=== PATIENT | female | born 1945 | race Caucasian/White ===

== ENCOUNTER 2016-10-31 16:17 | Emergency (ER) | payer MEDICARE ==
[~2016-10-31] VITALS: Ht 149.9 cm; Wt 52.0 kg
[~2016-10-31 16:17] MED LIST: ALBU1AER INH; CALC1TAB53; GABA100C4 PO; HERBAL LIFE; PREM0.622 PO; PROZ20CA11 PO; [UNRECOGNIZED DRUG - OTHER]
[2016-10-31 16:19] VITALS: BP 137/61; PULSE 82; RESP 20; TEMP 98.1; O2SAT 94
[2016-10-31] MEDS ORDERED: GABA800T PO (20:23)
[2016-10-31] MEDS ORDERED: LOSA50TA PO (20:23)
[2016-10-31] MEDS ORDERED: FLUO1TAB17 (20:23)
[2016-10-31] MEDS ORDERED: TRAM50TA PO (20:23)
[2016-10-31] MEDS ORDERED: ADVA115A INH (20:23)
[2016-10-31] MEDS ORDERED: LEVOTAB PO (20:23)
[2016-10-31] MEDS ORDERED: PERC7.5T13 PO (20:23)
[2016-10-31] MEDS ORDERED: ENSULIQ (20:23)
[2016-10-31] MEDS ORDERED: NICO14DI T-DERMAL (20:23)
[2016-10-31] MEDS ORDERED: OXYB10TA PO (20:23)
[2016-10-31] MEDS ORDERED: ZOFR4TAB PO (20:23)
--- NOTE | 2016-10-31 21:06 | RADRPT ---
EXAM DATE/TIME: 10/31/2016 20:47 [place] COMPARISON: CT NEEDLE BIOPSY LUNG, LEFT, May 23, 2015, 8:42. CHEST EXPIRATION ONLY, May 23, 2015, 11:01. INDICATIONS : Fever. MEDICAL HISTORY : Carcinoma, lung. SURGICAL HISTORY : None. ENCOUNTER: Initial ACUITY: 1 day PAIN SCORE: 0/10 LOCATION: Bilateral chest FINDINGS: There is a mass-like density within the right upper lung field which is increased in overall size com pared to the previous chest x-ray in May of 2015. A right basilar granuloma is also noted. The left lung is clear. The heart is normal. CONCLUSION: Mass-like density within the right upper lung field which has increased in overall size compared to t he previous examination in May of 2015. Ed Lyles MD on October 31, 2016 at 20:59 Board Certified Radiologist. This report was verified electronically.
--- NOTE | 2016-10-31 21:07 | PD ---
HPI Chief Complaint: Fever Time Seen by Provider: 20:18 Travel History International Travel<30 days: No Contact w/Intl Traveler<30days: No Traveled to known affect area: No History of Present Illness HPI 71yo F with PMH of lung CA was sent here by her PMD Dr. Leggett for cxr and blood work as per patient. Pt has been having nasal congestion, ear pain, and mild cough. Chest discomfort with cough. Pt has visiting nurse and found to have temperature of 100F today. Pt was discharged from [facility] 1 month ago for blood infection and pneumonia. PFSH Past Medical History Cancer: No Cardiovascular Problems: Yes (HTN) Chemotherapy: Yes (A YEAR AGO) Cerebrovascular Accident: Yes Diabetes: No Endocrine: No Gastrointestinal Disorders: No Genitourinary: No Hepatitis: No Hiatal Hernia: No Hypertension: No Immune Disorder: No Medical other: No Musculoskeletal: Yes (OSTEOPOROSIS) Neurologic: Yes (LEG NEUROPATHY, "DOUBLE ANEURYSM LEFT SIDE OF BRAIN") Psychiatric: Yes (DEPRESSION) Reproductive: No Respiratory: Yes (COPD/LUNG CANCER) Thyroid Disease: No Influenza Vaccination: No ?: Not Past Surgical History Abdominal Surgery: Yes (APPENDECTOMY) AICD: No Endocrine Surgery: Yes (TONSILLECTOMY) Gynecologic Surgery: Yes (HYSTERECTOMY) Hysterectomy: Yes Joint Replacement: No Pacemaker: No Other Surgery: Yes Social History Alcohol Use: No Tobacco Use: Yes Substance Use: No Allergies-Medications (Allergen,Severity, Reaction): Coded Allergies: No Known Allergies (Unverified , 10/31/16) Reported Meds & Prescriptions Reported Meds & Active Scripts Active Bactrim DS (Sulfamethoxazole-Trimethoprim) 800-160 Mg Tab 1 Tab PO BID Reported Ensure (Nutritional Supplements) 1 Liq Liq Zofran (Ondansetron HCl) 4 Mg Tab 4 Mg PO Q4HR PRN Tramadol (Tramadol HCl) 50 Mg Tab 50 Mg PO Q4H PRN Percocet (Oxycodone-Acetaminophen) 7.5-325 mg Tab 1 Tab PO Q8HR PRN Levocetirizine 5 Mg Tab 5 Mg PO DAILY Gabapentin 800 Mg Tab 800 Mg PO TID Advair Hfa 12 GM Inh (Fluticasone-Salmeterol 12 GM Inh) 115-21 Mcg/Act Aer 2 Puff INH BID Losartan (Losartan Potassium) 50 Mg Tab 50 Mg PO DAILY Nicotine Patch (Nicotine) 14 Mg/24 Hr Patch 14 Mg T-DERMAL DAILY Oxybutynin ER 24 HR (Oxybutynin Chloride) 10 Mg Tab 10 Mg PO DAILY Fluoxetine HCl (Fluoxetine HCl (Pmdd)) 20 Mg Tab 20 Review of Systems Except as stated in HPI: all other systems reviewed are Neg Physical Exam Narrative GENERAL: 71yo F not in distress. SKIN: Focused skin assessment warm/dry. HEAD: Atraumatic. Normocephalic. EYES: Pupils equal and round. No scleral icterus. No injection or drainage. ENT: No nasal bleeding or discharge. Mucous membranes pink and moist. NECK: Trachea midline. No JVD. CARDIOVASCULAR: Regular rate and rhythm. No murmur appreciated. RESPIRATORY: No accessory muscle use. Clear to auscultation. Breath sounds equal bilaterally. GASTROINTESTINAL: Abdomen soft, non-tender, nondistended. No rebound tenderness or guarding. MUSCULOSKELETAL: No obvious deformities. No clubbing. No cyanosis. No edema. NEUROLOGICAL: Awake and alert. No obvious cranial nerve deficits. Motor grossly within normal limits. Normal speech. PSYCHIATRIC: Appropriate mood and affect; insight and judgment normal. Data Data Last Documented VS Vital Signs Date Time Temp Pulse Resp B/P Pulse Ox O2 Delivery O2 Flow Rate FiO2 10/31/16 16:19 98.1 82 20 137/61 94 Room Air Orders Complete Blood Count With Diff (10/31/16 20:30) Basic Metabolic Panel (Bmp) (10/31/16 20:30) Ckmb (Isoenzyme) Profile (10/31/16 20:30) Troponin I (10/31/16 20:30) Prothrombin Time / Inr (Pt) (10/31/16 20:30) Act Partial Throm Time (Ptt) (10/31/16 20:30) Chest, Single Ap (10/31/16 ) Lactic Acid Sepsis Protocol (10/31/16 20:30) Urinalysis - C+S If Indicated (10/31/16 20:30) Influenzae A/B Antigen (10/31/16 20:30) Electrocardiogram (10/31/16 ) Urine Culture (10/31/16 20:50) Ceftriaxone Inj (Rocephin Inj) (10/31/16 21:30) CKMB (10/31/16 20:50) CKMB% (10/31/16 20:50) Labs Laboratory Tests Test 10/31/16 20:50 White Blood Count 5.8 TH/MM3 Red Blood Count 3.90 MIL/MM3 Hemoglobin 11.3 GM/DL Hematocrit 33.3 % Mean Corpuscular Volume 85.4 FL Mean Corpuscular Hemoglobin 29.0 PG Mean Corpuscular Hemoglobin 34.0 % Concent Red Cell Distribution Width 13.7 % Platelet Count 268 TH/MM3 Mean Platelet Volume 6.8 FL Neutrophils (%) (Auto) 59.5 % Lymphocytes (%) (Auto) 25.0 % Monocytes (%) (Auto) 6.7 % Eosinophils (%) (Auto) 8.1 % Basophils (%) (Auto) 0.7 % Neutrophils # (Auto) 3.5 TH/MM3 Lymphocytes # (Auto) 1.5 TH/MM3 Monocytes # (Auto) 0.4 TH/MM3 Eosinophils # (Auto) 0.5 TH/MM3 Basophils # (Auto) 0.0 TH/MM3 CBC Comment DIFF FINAL Differential Comment Prothrombin Time 10.7 SEC Prothromb Time International 1.0 RATIO Ratio Activated Partial 29.0 SEC Thromboplast Time Urine Color YELLOW Urine Turbidity HAZY Urine pH 6.0 Urine Specific [place] 1.014 Urine Protein TRACE mg/dL Urine Glucose (UA) NEG mg/dL Urine Ketones NEG mg/dL Urine Occult Blood SMALL Urine Nitrite NEG Urine Bilirubin NEG Urine Urobilinogen LESS THAN 2.0 MG/DL Urine Leukocyte Esterase LARGE Urine RBC 11 /hpf Urine WBC 20 /hpf Urine Squamous Epithelial 2 /hpf Cells Urine Transitional Epithelial 2 /hpf Cells Urine Bacteria RARE /hpf Microscopic Urinalysis Comment CULTURE INDICATED Sodium Level 136 MEQ/L Potassium Level 3.9 MEQ/L Chloride Level 99 MEQ/L Carbon Dioxide Level 29.1 MEQ/L Anion Gap 8 MEQ/L Blood Urea Nitrogen 13 MG/DL Creatinine 0.52 MG/DL Estimat Glomerular Filtration 116 ML/MIN Rate Random Glucose 91 MG/DL Lactic Acid Level 0.8 mmol/L Calcium Level 9.0 MG/DL Total Creatine Kinase 605 U/L Creatine Kinase MB 15.9 NG/ML Creatine Kinase MB % 2.6 % Troponin I LESS THAN 0.02 NG/ML MDM Medical Decision Making Medical Screen Exam Complete: Yes Emergency Medical Condition: Yes Interpretation(s) Laboratory Tests Test 10/31/16 20:50 White Blood Count 5.8 TH/MM3 (4.0-11.0) Red Blood Count 3.90 MIL/MM3 (4.00-5.30) Hemoglobin 11.3 GM/DL (11.6-15.3) Hematocrit 33.3 % (35.0-46.0) Mean Corpuscular Volume 85.4 FL (80.0-100.0) Mean Corpuscular Hemoglobin 29.0 PG (27.0-34.0) Mean Corpuscular Hemoglobin 34.0 % Concent (32.0-36.0) Red Cell Distribution Width 13.7 % (11.6-17.2) Platelet Count 268 TH/MM3 (150-450) Mean Platelet Volume 6.8 FL (7.0-11.0) Neutrophils (%) (Auto) 59.5 % (16.0-70.0) Lymphocytes (%) (Auto) 25.0 % (9.0-44.0) Monocytes (%) (Auto) 6.7 % (0.0-8.0) Eosinophils (%) (Auto) 8.1 % (0.0-4.0) Basophils (%) (Auto) 0.7 % (0.0-2.0) Neutrophils # (Auto) 3.5 TH/MM3 (1.8-7.7) Lymphocytes # (Auto) 1.5 TH/MM3 (1.0-4.8) Monocytes # (Auto) 0.4 TH/MM3 (0-0.9) Eosinophils # (Auto) 0.5 TH/MM3 (0-0.4) Basophils # (Auto) 0.0 TH/MM3 (0-0.2) CBC Comment DIFF FINAL Differential Comment Prothrombin Time 10.7 SEC (9.8-11.6) Prothromb Time International 1.0 RATIO Ratio Activated Partial 29.0 SEC Thromboplast Time (24.3-30.1) Urine Color YELLOW (YELLW/STRAW) Urine Turbidity HAZY (CLEAR) Urine pH 6.0 (5.0-8.5) Urine Specific [place] 1.014 (1.002-1.035) Urine Protein TRACE mg/dL (NEG-TRACE) Urine Glucose (UA) NEG mg/dL (NEG) Urine Ketones NEG mg/dL (NEG) Urine Occult Blood SMALL (NEG) Urine Nitrite NEG (NEG) Urine Bilirubin NEG (NEG) Urine Urobilinogen LESS THAN 2.0 MG/DL (LESS THAN 2.0) Urine Leukocyte Esterase LARGE (NEG) Urine RBC 11 /hpf (0-3) Urine WBC 20 /hpf (0-5) Urine Squamous Epithelial 2 /hpf (0-5) Cells Urine Transitional Epithelial 2 /hpf (NONE) Cells Urine Bacteria RARE /hpf (NONE) Microscopic Urinalysis Comment CULTURE INDICATED Sodium Level 136 MEQ/L (136-145) Potassium Level 3.9 MEQ/L (3.5-5.1) Chloride Level 99 MEQ/L (98-107) Carbon Dioxide Level 29.1 MEQ/L (21.0-32.0) Anion Gap 8 MEQ/L (5-15) Blood Urea Nitrogen 13 MG/DL (7-18) Creatinine 0.52 MG/DL (0.50-1.00) Estimat Glomerular Filtration 116 ML/MIN Rate (>89) Random Glucose 91 MG/DL (74-106) Lactic Acid Level 0.8 mmol/L (0.4-2.0) Calcium Level 9.0 MG/DL (8.5-10.1) Total Creatine Kinase 605 U/L (26-192) Creatine Kinase MB 15.9 NG/ML (0.5-3.6) Creatine Kinase MB % 2.6 % (0.0-4.0) Troponin I LESS THAN 0.02 NG/ML (0.02-0.05) Last Impressions Chest X-Ray 10/31/16 0000 Signed Impressions: Service Date/Time: Monday, October 31, 2016 20:47 - CONCLUSION: Mass-like density within the right upper lung field which has increased in overall size compared to the previous examination in May of 2015. Ed Lyles MD EKG: Sinus bradycardia at 55bpm. Normal axis. No ST segment elevation or depression. Differential Diagnosis pneumonia vs. URI vs. influenza vs. UTI Narrative Course 71yo F with lung CA sent by PMD for further work up. Pt is well appearing and denies any chest pain or sob. Pt has URI like symptoms. Temp of 100F at home. Labs reviewed, WBC is 5.8. Not neutropenic. Lactic acid normal. CPK mildly elevated at 605. Creatinine normal. Troponin negative. Influenza negative. UA shoed large leukocyte. Pt given ceftriaxone 1gm IV. CXR showed mass like density within right upper lung field that has increased in size compared to previous in May 2015. Pt has known lung CA and will follow up with PMD or oncologist as outpatient. VS stable. Discussed case with Dr. Pina who is covering Dr. Leggett. Pt tolerating PO. Return precautions given. Diagnosis Primary Impression: UTI (urinary tract infection) Qualified Code: N39.0 - Urinary tract infection with hematuria, site unspecified Patient Instructions: General Instructions Departure Forms: Tests/Procedures Additional Instructions: Please follow up with your PMD in 3-7 days. Return to the ED if symptoms worsen. Med/Other Pt SpecificInfo: Prescription(s) given Scripts Sulfamethoxazole-Trimethoprim (Bactrim DS)800-160 Mg Tab1 Tab PO BID #14 TAB Ref 0 Prov:Vanda Max DO 10/31/16 Vanda Max DO Oct 31, 2016 21:07
[2016-10-31 21:15] LABS: AUTOMATED NEUTROPHIL # 3.5 TH/MM3 (1.8-7.7); BACTERIA, URINE RARE /hpf; BASOPHIL % 0.7 % (0.0-2.0); BLOOD, URINE SMALL (NEG); COMMENT (UR) CULTURE INDICATED; CULTURE IF INDICATED CULTURE INDICATED; EOSINOPHIL # 0.5 TH/MM3 (0-0.4); EOSINOPHIL % 8.1 % (0.0-4.0); GLUCOSE,URINE NEG (NEG); HEMATOCRIT 33.3 % (35.0-46.0); HEMO FLAGS DIFF FINAL; KETONE, URINE NEG (NEG); LYMPHOCYTE # 1.5 TH/MM3 (1.0-4.8); MEAN CELL VOLUME 85.4 FL (80.0-100.0); MONO % 6.7 % (0.0-8.0); NEUT % 59.5 % (16.0-70.0); NITRITE,URINE NEG (NEG); PLATELET COUNT 268 TH/MM3 (150-450); RED CELL DISTRIBUTION WIDTH 13.7 % (11.6-17.2); SQUAMOUS EPITHELIAL CELL URINE 2 /hpf (0-5); TRANSITIONAL EPI CELLS, URINE 2 /hpf; URINE COLOR YELLOW (YELLW/STRAW); WHITE BLOOD COUNT 5.8 TH/MM3 (4.0-11.0)
[2016-10-31] MEDS ORDERED: cefTRIAXone INJ 1,000 MG in SODIUM CHLORIDE 0.9% INJ 100 ML IV ONE (21:30)
[2016-10-31 21:37] LABS: PROTHROMBIN TIME - PATIENT 10.7 SEC (9.8-11.6)
[2016-10-31 21:39] LABS: ANION GAP 8 MEQ/L (5-15); BICARBONATE 29.1 MEQ/L (21.0-32.0); BLOOD UREA NITROGEN 13 MG/DL (7-18); CHLORIDE 99 MEQ/L (98-107); GLOMERULAR FILTRATION RATE 116 ML/MIN (>89); POTASSIUM 3.9 MEQ/L (3.5-5.1); SODIUM (NA) 136 MEQ/L (136-145)
[2016-10-31 21:43] LABS: CREATINE KINASE 605 U/L (26-192)
[2016-10-31 21:56] LABS: CKMB 15.9 NG/ML (0.5-3.6)
[2016-10-31] MEDS ORDERED: BACT800T5 PO (22:12)
[2016-10-31 22:22] VITALS: BP 124/52; TEMP 98.9
--- NOTE | 2016-11-02 21:23 | EKG ---
Date Performed: 10/31/2016 Time Performed: 21:24:16 PTAGE: 71 years EKG: SINUS BRADYCARDIA BORDERLINE ECG NO PREVIOUS TRACING DOCTOR: Taylor Rosales Interpretating Date/Time 11/02/2016 21:21:23
== END 2016-10-31 22:41 | disposition home or self-care (01) ==
LOC: NEPE 16:17
DX: N39.0 Urinary tract infection, site not specified (principal); B96.89 Other specified bacterial agents as the cause of diseases classified elsewhere; R31.9 Hematuria, unspecified; R00.1 Bradycardia, unspecified
CPT/HCPCS: 71010; 80048; 81001; 82550; 82552; 83605; 84484; 85025; 85610; 85730; 87086; 87804; 93005; 96365; 99284; J0696